=== PATIENT | female | born 1985 | race Caucasian/White ===

== ENCOUNTER 2016-06-29 20:30 | Inpatient (IN) | payer BC, MEDICAID, OTHER ==
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
[2016-06-29] MEDS ORDERED: LORazepam 1 MG TAB PO STA (21:00)
[2016-06-30 03:31] VITALS: BMI 29.5
[2016-06-30] MEDS ORDERED: ACETAMINOPHEN TAB 325 MG TAB PO PRN (03:55)
[2016-06-30] MEDS ORDERED: MAGNESIUM HYDROXIDE 2,400 MG/10 ML CUP PO PRN (03:55)
[2016-06-30] MEDS: LORazepam 1 MG TAB PO PRN ×2 (04:17→12:57)
[2016-06-30] MEDS: NICOTINE 14MG/24HR PATCH TRANSDERM SCH (09:15)
[2016-06-30 10:52] LABS: Basophils % (A) 0 %; CH 28.3; CHCM 32.8; Eosinophils # (A) 0.1 k/uL (0-0.7); Eosinophils % (A) 1 %; HCT 42.5 % (34.0-46.0); HDW 2.47; Luc # (Auto) 0.15; Luc % (Auto) 1; Lymphocytes # (A) 1.6 k/uL (1.0-4.8); Lymphocytes % (A) 15 %; MCH 28.6 pg (25.0-35.0); MCV 86.6 fL (80.0-100.0); Mean Platelet Volume 7.5; Monocytes # (A) 0.4 k/uL (0-1.0); Monocytes % (A) 4 %; Neutrophils # (A) 8.7 k/uL (1.3-7.7); Neutrophils % (A) 79 %; RBC 4.91 m/uL (3.80-5.40); RDW 14.5 % (11.5-15.5); WBC (Perox) 11.23
[2016-06-30 11:02] LABS: ALT 25 U/L (9-52); AST 17 U/L (14-36); Alkaline Phosphatase 32 U/L (38-126); Anion Gap 13 mmol/L; Blood Urea Nitrogen 10 mg/dL (7-17); Calcium 9.9 mg/dL (8.4-10.2); Carbon Dioxide 21 mmol/L (22-30); Chloride 106 mmol/L (98-107); Glucose 99 mg/dL (74-99); Non-African American GFR(MDRD) >60 (>60 ml/min/1.73 sqM); Potassium 4.4 mmol/L (3.5-5.1); Sodium 140 mmol/L (137-145); Total Bilirubin 0.5 mg/dL (0.2-1.3); Total Protein 7.8 g/dL (6.3-8.2)
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
[2016-06-30] MEDS: VENLAFAXINE HCL ER 75 MG CAP PO SCH (15:45)
[2016-06-30] MEDS: ARIPiprazole 2 MG TAB PO SCH (15:45)
[2016-06-30] MEDS: MAG HYDROX/AL HYDROX/SIMETH 30 ML CUP PO PRN (21:00)
[2016-07-01 06:47] VITALS: RESP 16
[2016-07-01] MEDS: VENLAFAXINE HCL ER 75 MG CAP PO SCH (08:35)
[2016-07-01] MEDS: NICOTINE 14MG/24HR PATCH TRANSDERM SCH (08:35)
[2016-07-01] MEDS: ARIPiprazole 2 MG TAB PO SCH (08:35)
[2016-07-01] MEDS: MAG HYDROX/AL HYDROX/SIMETH 30 ML CUP PO PRN (10:31)
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
[2016-07-01 19:54] LABS: Appearance,Urine Clear (Clear); Bilirubin,Urine Negative (Negative); Glucose,Urine (UA) Negative (Negative); Ketones,Urine Negative (Negative); Leukocyte Esterase,Urine Negative (Negative); Nitrite,Urine Negative (Negative); PH, Urine 6.5 (5.0-8.0); Protein,Urine Negative (Negative); Specific Gravity,Urine 1.001 (1.001-1.035); UA Billing (MACRO vs. MICRO) CHEM; Urobilinogen,Urine <2.0 mg/dL (<2.0)
[2016-07-01] MEDS: LORazepam 1 MG TAB PO PRN (21:07)
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
[2016-07-02 05:37] VITALS: BP 126/78; PULSE 88; TEMP 98.1
[2016-07-02] MEDS: ARIPiprazole 2 MG TAB PO SCH (08:38)
[2016-07-02] MEDS: VENLAFAXINE HCL ER 75 MG CAP PO SCH (08:38)
[2016-07-02] MEDS: NICOTINE 14MG/24HR PATCH TRANSDERM SCH (08:38)
--- NOTE | 2016-07-02 11:54 | P.PN ---
Progress Note - Text SUBJECTIVE: I reviewed the medical record, interviewed Ms. Rabago and discussed her treatment and treatment plan during team meeting. She denied feeling depressed or having thoughts of or suicide. She denied alcohol withdrawal symptoms. She denied side effects to either the Effexor or the Abilify. She is interested in continuing outpatient mental health services. OBJECTIVE: She presented as a casually groomed moderately obese 30-year-old female who looked her stated age. She maintained eye contact and attended to the interview. She had no distinguishing features or prominent physical abnormalities. She had a depressed right expression. She was alert and oriented to person, place and time. She showed no abnormality of psychomotor activity. She had a normal gait and station. Her speech was spontaneous and a rate, rhythm and volume. Her affect was stable and appropriate. She denied suicidal ideation or wishes. She denied current intent or plan. She denied homicidal ideation. She denied depressive cognitions such as hopelessness, helplessness and worthlessness. She did not express ideas of reference or paranoid ideation. She did not express clear delusional thoughts or beliefs. Her thinking was abstract and her associations were coherent and logical. She denied hallucinations and did not appear to be responding to internal stimuli.. Global impression of intellect is average. She is aware of her illness and need for mental health treatment. Her admission TSH was elevated at 8.270 but her free T4 was normal at 1.11 terrazzo worker helper assisted her in counseling her Medicaid through [place]; her [place] Medicaid application is pending. ASSESSMENT: The rapid resolution of depression, depressive symptoms, anxiety and suicidal ideation are not consistent with a major depressive disorder. Her admission was related to her intoxication from alcohol and conflicts with her . PLAN: Discharge home with follow-up through [facility]. Continue Effexor XR 75 mg daily and Abilify 5 mg at bedtime. Advised her to refrain from alcohol and other mood altering drugs.
--- NOTE | 2016-07-02 12:06 | P.DS ---
Providers Date of admission: 06/30/16 02:45 Attending physician: Danny Flores MD Consults: 06/30/16 03:55 Consult Physician Routine Consulting Provider: Markie Narvaez Consult Reason/Comments: medical management Do you want consulting provider notified?: Yes, Notify in am Primary care physician: Stated None - Discharge Diagnosis(es) (1) Alcohol intoxication Current Visit: Yes Status: Acute Priority: High (2) Alcohol-induced mood disorder Current Visit: Yes Status: Acute Priority: High (3) Marital conflict Current Visit: Yes Status: Chronic Priority: Medium (4) Suicidal ideation Current Visit: Yes Status: Resolved Priority: High (5) Legal problem Current Visit: Yes Status: Chronic Priority: Medium Hospital Course: She has a 30-year-old woman who presented voluntarily acutely INTOXICATED with alcohol (BAL 0.145) and having suicidal ideation, depression and a suicide gesture. The suicidal ideation and gesture developed when she was intoxicated and arguing with her live-in boyfriend. She denied feeling depressed or having thoughts of suicide before she became inebriated. She has history of chronic low self-esteem and intermittent feelings depression. She had one prior psychiatric hospitalization [facility] in December 2014 for depression and suicide attempt. Please see admission assessment dictated 06/30/2016 for full history. A contributing factor may also be legal problems. She has a warrant for arrest for violation of probation for charges of possession of marijuana. We admitted her this psychiatric unit under the care of this writer technical publications. We provided a biopsychosocial assessment. The healthcare economics consultant building certifier completed the initial physical exam and medical history. Her TSH was elevated a 0.270 but her free T4 was normal at 1.11. We started Effexor XR 75 mg daily and Abilify 2 mg at bedtime for treatment of depression. Her depression, suicidal ideation and agitation quickly remitted. During this brief hospitalization she talked about her chronic feelings of low self-esteem and difficulties in social situations. She described feeling frightened and anxious whenever she is in a social situation. The level of her anxiety is such that she avoids social situations for fear that she would embarrassed herself. She participated in therapeutic groups and activities. She posed no management problem and required no when necessary medications for behavioral dyscontrol. The psych social worker arranged a family meeting. Her live-in boyfriend has no concerns about her safety and wishes her to return home. The dramatic resolution of depression and anxiety and suicidal ideation is not consistent with a major depressive disorder. Her presentation is most likely related to her use of alcohol and conflict with her boyfriend. The psych social worker arranged for her to have outpatient mental health treatment through [facility]. At the time discharge denied feeling depressed, anxious or having thoughts of or suicide. Patient Condition at Discharge: Good Plan - Discharge Summary New Discharge Prescriptions: ARIPiprazole [Abilify] 2 mg PO DAILY 30 Days Nicotine 14Mg/24Hr Patch [Habitrol] 1 patch TRANSDERM DAILY 14 Days Venlafaxine HCl ER [Effexor XR] 75 mg PO DAILY 30 Days Discharge Medication List ARIPiprazole [Abilify] 2 mg PO DAILY 30 Days 07/02/16 [Rx] Nicotine 14Mg/24Hr Patch [Habitrol] 1 patch TRANSDERM DAILY 14 Days 07/02/16 [Rx ] Venlafaxine HCl ER [Effexor XR] 75 mg PO DAILY 30 Days 07/02/16 [Rx] Follow up Appointment(s)/Referral(s): Dalia Weems [facility] [Outside] - 07/04/16 2:00 pm (Patient needs to call office ([phone]) prior to appointment to initiate paperwork. This needs to be done JUSTINO.) None,Stated [Primary Care Provider] - 1-2 days Discharge Disposition: HOME SELF-CARE
[2016-07-02] MEDS: LORazepam 1 MG TAB PO PRN (14:05)
== END 2016-07-02 17:21 | disposition home or self-care (01) | DRG 897 ==
LOC: EC 20:30 → 3MHU 06-30 02:45
PROVIDERS: ADMIT Psychiatry & Neurology Psychiatry; ATTEND Psychiatry & Neurology Psychiatry
DX: F10.14 Alcohol abuse with alcohol-induced mood disorder (principal); R45.851 Suicidal ideations; F10.129 Alcohol abuse with intoxication, unspecified; F12.90 Cannabis use, unspecified, uncomplicated; F41.1 Generalized anxiety disorder; F40.10 Social phobia, unspecified; E66.9 Obesity, unspecified; F17.200 Nicotine dependence, unspecified, uncomplicated; Z68.29 Body mass index [BMI] 29.0-29.9, adult; Z65.3 Problems related to other legal circumstances; Z63.0 Problems in relationship with spouse or partner
CPT/HCPCS: 80053; 80306; 81003; 81025; 82075; 84439; 84443; 85025; 99285

== ENCOUNTER 2020-04-30 10:45 | Emergency (ER) | payer OTHER ==
[2020-04-30] MEDS ORDERED: LORazepam 2 MG/ML INJ IV STA (10:51)
[2020-04-30] MEDS ORDERED: SODIUM CHLORIDE 0.9% 1,000 ML IV STA (10:51)
[2020-04-30] MEDS ORDERED: METOCLOPRAMIDE 5 MG/ML 2 ML VIAL IVP STA (10:51)
[2020-04-30] MEDS ORDERED: FAMOTIDINE 20 MG/2 ML VIAL IV STA (10:52)
--- NOTE | 2020-04-30 10:54 | ED ---
General Adult HPI - General Stated complaint: Nausea,Vomiting Time Seen by Provider: 04/30/20 10:47 Source: patient, EMS, RN notes reviewed Mode of arrival: EMS Limitations: no limitations - History of Present Illness Initial comments: Patient is a pleasant 34-year-old female presenting to the emergency Department with complaints of nausea vomiting. Onset of symptoms was a couple of days ago. Patient feels like she is have a bowel movement. Patient states she has been vomiting multiple 2 days ago. None yesterday. Several times again today. Patient still feels nauseated despite Zofran by EMS. Patient states she does have symptoms similar to this several times per year. No fever. Patient does smoke marijuana however does not feel that could be related to her problems. - Related Data Previous Rx's Medication Instructions Recorded ARIPiprazole [Abilify] 2 mg PO DAILY 30 Days tab 07/02/16 Nicotine 14Mg/24Hr Patch [Habitrol] 1 patch TRANSDERM DAILY 14 Days 07/02/16 patch Venlafaxine HCl ER [Effexor XR] 75 mg PO DAILY 30 Days cap.er.24h 07/02/16 Allergies Allergy/AdvReac Type Severity Reaction Status Date / Time No Known Allergies Allergy Verified 06/30/16 03:34 Review of Systems ROS Statement: Those systems with pertinent positive or pertinent negative responses have been documented in the HPI. ROS Other: All systems not noted in ROS Statement are negative. Constitutional: Denies: fever Eyes: Denies: eye pain ENT: Denies: ear pain Respiratory: Denies: cough Cardiovascular: Denies: chest pain Endocrine: Denies: fatigue Gastrointestinal: Reports: as per HPI, nausea, vomiting Genitourinary: Denies: dysuria Musculoskeletal: Denies: back pain Skin: Denies: rash Neurological: Denies: weakness Past Medical History Past Medical History: No Reported History Additional Past Medical History / Comment(s): OCC PAIN LEFT SHOULDER WITH LIMITED ROM., OCCASIONAL ABDOMINAL PAIN WITH NAUSEA AND VOMITING., History of Any Multi-Drug Resistant Organisms: None Reported Past Surgical History: Tubal Ligation Additional Past Surgical History / Comment(s): D&C- ONE IMPLANTED TOOTH Past Anesthesia/Blood Transfusion Reactions: Motion Sickness Additional Past Anesthesia/Blood Transfusion Reaction / Comment(s): HAS NOT RECEIVED ANESTHESIA. Past Psychological History: Depression Additional Psychological History / Comment(s): HX PANIC ATTACKS APPROX 8 YRS AGO. Past Alcohol Use History: Rare Additional Past Alcohol Use History / Comment(s): STARTED SMOKING AT AGE 17 QUIT AT AGE 23, SMOKED 4-5 CIG PER DAY current smoker 10 cigs daily Past Drug Use History: Marijuana Additional Drug Use History / Comment(s): MARIJUANA USE DAILY.LAST USED - Past Family History Mother History Unknown: Yes Father Family Medical History: No Reported History Additional Family Medical History / Comment(s): OBESITY, 2013 General Exam Limitations: no limitations General appearance: alert Head exam: Present: normocephalic Eye exam: Present: normal appearance ENT exam: Present: normal oropharynx Neck exam: Present: normal inspection Respiratory exam: Present: normal lung sounds bilaterally Cardiovascular Exam: Present: regular rate, normal rhythm Expanded Peripheral pulses: 2+: Dorsalis Pedis (R), Dorsalis Pedis (L) GI/Abdominal exam: Present: soft, normal bowel sounds. Absent: distended, tenderness, guarding, rebound, rigid, pulsatile mass Extremities exam: Present: normal inspection. Absent: pedal edema, calf tenderness Neurological exam: Present: alert Psychiatric exam: Present: anxious Skin exam: Present: normal color Course Vital Signs 04/30/20 11:04 Temperature 97.3 F L Pulse Rate 65 Respiratory 18 Rate Blood Pressure 114/84 O2 Sat by Pulse 100 Oximetry Medical Decision Making - Medical Decision Making H was reevaluated and improved. Abdomen soft and nontender. Patient advised to avoid marijuana. - Lab Data Result diagrams: 04/30/20 11:04 04/30/20 11:40 Lab Results 04/30/20 04/30/20 04/30/20 Range/Units 11:04 11:04 11:40 WBC 9.8 (3.8-10.6) k/uL RBC 4.72 (3.80-5.40) m/uL Hgb 12.2 (11.4-16.0) gm/dL Hct 37.6 (34.0-46.0) % MCV 79.8 L (80.0-100.0) fL MCH 25.9 (25.0-35.0) pg MCHC 32.5 (31.0-37.0) g/dL RDW 14.5 (11.5-15.5) % Plt Count 369 (150-450) k/uL MPV 7.5 Neutrophils % 72 % Lymphocytes % 19 % Monocytes % 5 % Eosinophils % 2 % Basophils % 1 % Neutrophils # 7.0 (1.3-7.7) k/uL Lymphocytes # 1.8 (1.0-4.8) k/uL Monocytes # 0.5 (0-1.0) k/uL Eosinophils # 0.2 (0-0.7) k/uL Basophils # 0.1 (0-0.2) k/uL PT 10.7 (9.0-12.0) sec INR 1.0 (<1.2) APTT 23.2 (22.0-30.0) sec Sodium 137 (137-145) mmol/L Potassium 3.5 (3.5-5.1) mmol/L Chloride 109 H (98-107) mmol/L Carbon Dioxide 19 L (22-30) mmol/L Anion Gap 9 mmol/L BUN 15 (7-17) mg/dL Creatinine 0.86 (0.52-1.04) mg/dL Est GFR (CKD-EPI)AfAm >90 (>60 ml/min/1.73 sqM) Est GFR (CKD-EPI)NonAf 90 (>60 ml/min/1.73 sqM) Glucose 116 H (74-99) mg/dL Calcium 8.8 (8.4-10.2) mg/dL Total Bilirubin 0.3 (0.2-1.3) mg/dL AST 17 (14-36) U/L ALT 17 (4-34) U/L Alkaline Phosphatase 23 L (38-126) U/L Total Protein 6.6 (6.3-8.2) g/dL Albumin 4.0 (3.5-5.0) g/dL Amylase 64 (30-110) U/L Lipase 187 (23-300) U/L Disposition Clinical Impression: Vomiting Disposition: HOME SELF-CARE Condition: Stable Instructions (If sedation given, give patient instructions): Acute Nausea and Vomiting (ED) Additional Instructions: Please follow-up with primary care physician in the next day or 2 for recheck. Avoid marijuana/cannabis as this could be related with your symptoms. Return for uncontrolled vomiting, increased pain, fevers, worsening or change in symptoms or other concerns. Is patient prescribed a controlled substance at d/c from ED?: No Referrals: Tanya Ferro MD [STAFF PHYSICIAN] - 1-2 days Tigist Mcneill MD [REFERRING] - 1-2 days Time of Disposition: 13:16
[2020-04-30 11:12] LABS: Basophils # (A) 0.1 k/uL (0-0.2); Basophils % (A) 1 %; Eosinophils # (A) 0.2 k/uL (0-0.7); Eosinophils % (A) 2 %; HCT 37.6 % (34.0-46.0); HGB 12.2 gm/dL (11.4-16.0); Lymphocytes # (A) 1.8 k/uL (1.0-4.8); Lymphocytes % (A) 19 %; MCH 25.9 pg (25.0-35.0); MCHC 32.5 g/dL (31.0-37.0); MCV 79.8 fL (80.0-100.0); Mean Platelet Volume 7.5; Monocytes # (A) 0.5 k/uL (0-1.0); Monocytes % (A) 5 %; Neutrophils % (A) 72 %; Platelet Count 369 k/uL (150-450); RBC 4.72 m/uL (3.80-5.40); RDW 14.5 % (11.5-15.5); WBC 9.8 k/uL (3.8-10.6)
[2020-04-30 11:13] VITALS: RESP 18; TEMP 97.3
[2020-04-30 11:50] LABS: Prothrombin Time 10.7 sec (9.0-12.0)
[2020-04-30 11:51] LABS: Partial Thromboplastin Time 23.2 sec (22.0-30.0)
[2020-04-30 12:00] LABS: ALT 17 U/L (4-34); AST 17 U/L (14-36); African American GFR (CKD) >90 (>60 ml/min/1.73 sqM); Alkaline Phosphatase 23 U/L (38-126); Amylase 64 U/L (30-110); Anion Gap 9 mmol/L; Blood Urea Nitrogen 15 mg/dL (7-17); Calcium 8.8 mg/dL (8.4-10.2); Carbon Dioxide 19 mmol/L (22-30); Chloride 109 mmol/L (98-107); Glucose 116 mg/dL (74-99); Lipase 187 U/L (23-300); Non-African American GFR(CKD) 90 (>60 ml/min/1.73 sqM); Potassium 3.5 mmol/L (3.5-5.1); Sodium 137 mmol/L (137-145); Total Bilirubin 0.3 mg/dL (0.2-1.3); Total Protein 6.6 g/dL (6.3-8.2)
[2020-04-30] MEDS ORDERED: diphenhydrAMINE 50 MG/ML 1 ML VIAL IVP STA (12:05)
[2020-04-30] MEDS ORDERED: CAPSAICIN 0.025% CREAM 60 GM TUBE TOPICAL STA (12:05)
--- NOTE | 2020-04-30 12:20 | XR ---
KUB HISTORY: Abdominal pain Frontal KUB and 2 images correlated prior KUB 08/27/2013 Lung bases are clear. There is no evident pneumoperitoneum. There is an air-fluid level in the mid ab domen. Some mild bowel distention. Bone mineralization is normal. IMPRESSION: Correlate for enteritis, follow-up as indicated if bowel obstruction is suspected clinica lly.
[2020-04-30 13:20] LABS: Appearance,Urine Cloudy (Clear); Bilirubin,Urine Negative (Negative); Blood,Urine Negative (Negative); Color,Urine Yellow; Glucose,Urine (UA) Negative (Negative); Ketones,Urine 2+ (Negative); Leukocyte Esterase,Urine Negative (Negative); Mucus,Urine Many /hpf; Nitrite,Urine Negative (Negative); Protein,Urine 1+ (Negative); RBC,Urine 3 /hpf (0-5); Specific Gravity,Urine 1.029 (1.001-1.035); Squamous Epithelial Cell,Urine 12 /hpf (0-4); Urobilinogen,Urine <2.0 mg/dL (<2.0); WBC,Urine 6 /hpf (0-5)
[2020-04-30 13:42] VITALS: BP 147/90; PULSE 88
== END 2020-04-30 13:42 | disposition home or self-care (01) ==
LOC: EC 10:45
DX: R11.10 Vomiting, unspecified (principal); F17.200 Nicotine dependence, unspecified, uncomplicated; Z98.51 Tubal ligation status
CPT/HCPCS: 36415; 80053; 82150; 83690; 85025; 85610; 85730; 81001; 74018; 99284; 96374; 96375 ×3; 96361; J2060; J1200; J2765